=== PATIENT | female | born 2000 | race Hispanic/Latino ===

== ENCOUNTER → 2018-01-01 | Outpatient (CLI) | payer OTHER | END | disposition home or self-care (01) | LOC: RAH 11:23 → EEVIPCON 11:23 | PROVIDERS: ATTEND Internal Medicine | DX: Z34.01 Encounter for supervision of normal first pregnancy, first trimester (principal); Z3A.08 8 weeks gestation of pregnancy | CPT/HCPCS: 76801 ==